=== PATIENT | female | born 1960 | race Caucasian/White ===

== ENCOUNTER 2022-09-13 15:34 | Day surgery (SDC) | payer OTHER ==
[2022-09-13] MEDS ORDERED: Depo-Medrol 40 MG/ML IM ONE (15:35)
[2022-09-13] MEDS ORDERED: LIDOCAINE HCL 1% 50 MG/5 ML VL PF IJ ONE (15:35)
[2022-09-13] MEDS ORDERED: BUPIVACAINE 0.5% VIAL IJ ONE (15:35)
--- NOTE | 2022-09-13 19:29 | XRAY ---
Indication: Right knee injection. Intraoperative fluoroscopy provided for 10 seconds. Single digital spot image submitted for interpretation demonstrates needle tip projecting over the right femur intercondylar notch. Small amount of contrast injected for needle tip placement. Correlate with intraoperative findings/report.
--- NOTE | 2022-09-13 19:30 | XRAY ---
Indication: Left knee injection. Intraoperative fluoroscopy provided for 4 seconds. Single digital spot image submitted for interpretation demonstrates needle tip projecting over the left femur intercondylar notch. Small amount of contrast injected for needle tip placement. Correlate with intraoperative findings/report.
--- NOTE | 2022-09-14 10:04 | XRAY ---
4 seconds of fluoroscopy was used in surgery for a left intra-articular knee injection.
--- NOTE | 2022-09-14 10:04 | XRAY ---
10 seconds of fluoroscopy was used in surgery for a right intra-articular knee injection.
== END 2022-09-13 17:15 | disposition home or self-care (01) ==
LOC: SDC-PAIN 15:34
PROVIDERS: ATTEND Psychiatry & Neurology Pain Medicine
DX: M17.0 Bilateral primary osteoarthritis of knee (principal); Z79.899 Other long term (current) drug therapy
CPT/HCPCS: 20610; 73560; 77002; J1030; J2001; Q9966

== ENCOUNTER 2022-11-16 18:40 | Emergency (ER) | payer OTHER ==
--- NOTE | 2022-11-16 18:41 | ERPHSYRPT ---
- History of Present Illness Time Seen by Provider: 11/16/22 18:41 Source: patient, family Exam Limitations: no limitations Physician History: This is a 62-year-old white female has a history of seasonal allergies and hyperlipidemia and fell down a couple of steps on her stairs this evening. She has pain in the lateral aspect of her right ankle. Because of the persistence and intensity of her pain, patient is here for evaluation including radiographic studies. Occurred: this evening Reason for Fall: slipped Injuries/Pain Location: lower extremity (Right foot and ankle) Loss of Consciousness: no loss of consciousness Quality: aching Severity of Pain-Max: moderate Severity of Pain-Current: moderate Modifying Factors: Improves With: movement Associated Symptoms (Fall): other (Hurts to bear weight but can do so) Allergies/Adverse Reactions: Penicillins Allergy (Verified 11/16/22 18:48) Home Medications: Atorvastatin Calcium 40 mg PO DAILY 11/16/22 [History] Cetirizine HCl [All Day Allergy] 10 mg PO DAILY 11/16/22 [History] Pregabalin 50 mg [Lyrica 50MG] 50 mg PO DAILY 11/16/22 [History] Travel Risk - International Travel Have you traveled outside of the country in past 3 weeks: No - Coronavirus Screening Are you exhibiting any of the following symptoms?: No Close contact with a COVID-19 positive Pt in past 14-21 Days: No - Review of Systems Constitutional: No Symptoms Eyes: No Symptoms Ears, Nose, & Throat: No Symptoms Respiratory: No Symptoms Cardiac: No Symptoms Abdominal/Gastrointestinal: No Symptoms Genitourinary Symptoms: No Symptoms Musculoskeletal: Injury (Right foot and ankle) Skin: No Symptoms Neurological: No Symptoms Psychological: No Symptoms Endocrine: No Symptoms Hematologic/Lymphatic: No Symptoms Immunological/Allergic: No Symptoms All Other Systems: Reviewed and Negative - Past Medical History Neurological History: Peripheral Neuropathy Cardiac History: High Cholesterol Respiratory History: Asthma Endocrine Medical History: No Pertinent History Musculoskeletal History: Fibromyalgia Other Medical History: Mitral valve prolapse - Nursing Vital Signs Nursing Vital Signs: Initial Vital Signs Temperature 97.2 F 11/16/22 18:56 Pulse Rate 84 11/16/22 18:56 Respiratory Rate 18 11/16/22 18:56 Blood Pressure 128/81 11/16/22 18:56 O2 Sat by Pulse Oximetry 97 11/16/22 18:56 Pain Scale Pain Intensity 5 - Duncan Coma Score Best Eye Response (Ramana): (4) open spontaneously Best Verbal Response (Duncan): (5) oriented Best Motor Response (Duncan): (6) obeys commands Ramana Total: 15 - Physical Exam General Appearance: no apparent distress, alert, anxiety Head Injury: no evidence of injury ENT Exam: airway nml, nml ext.inspection Neck Exam: supple, trachea midline, full range of motion, normal alignment Respiratory/Chest Exam: No chest tenderness, No respiratory distress Gastrointestinal Exam: No tenderness Rectal Exam: not done Back Exam: normal inspection, normal range of motion, vertebral tenderness, No CVA tenderness Extremity Exam: normal inspection, normal range of motion, pelvis stable, tenderness (Distal lateral ankle) Neurologic Exam: alert, oriented x 3, cooperative, messenger floorperson II-XII nml as tested, normal mood/affect, sensation nml Skin Exam: normal color, warm, dry SpO2 Interpretation: normal O2 Delivery: Room Air - Course Nursing assessment & vital signs reviewed: Yes Ordered Tests: Active Orders 24 hr Category Date Time Status Cold Application STAT Care 11/16/22 18:49 Active Crutches STAT Care 11/16/22 20:09 Active Splint STAT Care 11/16/22 20:08 Active ANKLE (3 VIEWS) Stat Exams 11/16/22 18:47 Taken FOOT (MINIMUM 3 VIEWS) Stat Exams 11/16/22 18:47 Taken Medication Summary Discontinued Medications Generic Name Dose Route Start Last Admin Trade Name Mike PRN Reason Stop Dose Admin Ibuprofen 600 mg 11/16/22 20:07 Ibuprofen 600 Mg Tablet PO 11/16/22 20:08 STAT ONE Naloxone HCl Confirm 11/16/22 19:00 Naloxone Hcl 0.4 Mg/Ml Ml Administered 11/16/22 19:01 Dose 0.4 mg .ROUTE .STK-MED ONE Oxycodone/Acetaminophen 1 tab 11/16/22 20:07 Oxycodone Hcl/Apap 5 Mg/325 Mg Tablet PO 11/16/22 20:08 STAT STA Oxycodone/Acetaminophen 2 tab 11/16/22 20:09 Oxycodone Hcl/Apap 5 Mg/325 Mg Tablet PO 11/16/22 20:10 SENT HOME W/ PATIENT STA - Progress Progress: improved, pain not gone completely, re-examined Progress Note: 11/16/22 20:17 This patient's medical issue is 1 of low complexity. Level complexity in the work-up performed is based on review of the past medical history, review of the patient's medication list, review of the patient's drug allergy list, history of present illness and physical findings on examination. Patient's work-up includes x-ray of right foot and right ankle. I reviewed and interpreted the x- ray of both the right foot and the right ankle. X-ray of the right foot does not show any acute fracture or dislocation of the bones of the foot. There appears to be a nondisplaced distal fibular fracture X-ray of the right ankle shows distal fibular fracture without displacement. Counseled pt/family regarding: diagnosis, need for follow-up, rad results Medical Desision Making - Independent Historian Additional History obtained from: Family - Diagnostic Testing Diagnostic test were ordered, analyzed, and reviewed by me: Yes Radiological Interpretation: Interpreted by me, Teleradiologist Report - Risk of complications Low Risk: Low risk of morbidity from additional dx testing or treatment - Departure Departure Disposition: Home Clinical Impression: Nondisplaced fracture of distal end of fibula Condition: Stable Critical Care Time: No Referrals: TOMASA PHILLIPS [Primary Care Provider] - Follow up/PCP as directed Additional Instructions: Nonweightbearing until after you are evaluated by either podiatry or orthopedic surgeon. You may seek further evaluation management by Dr. Beck, our data assistant at [facility]. You also have the option of [facility] orthopedic clinic. It is a Sunday through Sunday 8 AM to 10 AM clinic. You do not need to have an appointment. Ice pack to the right ankle 3 times a day. Add ibuprofen 600 mg orally with food 3 times a day for 5 days.
[2022-11-16 18:57] VITALS: RESP 18; TEMP 97.2
[2022-11-16] MEDS ORDERED: Narcan 0.4 MG/ML ONE (19:00)
[2022-11-16 20:06] VITALS: BP 137/92; PULSE 83; O2SAT 98
[2022-11-16] MEDS ORDERED: PERCOCET TABLET 5/325MG PO STA ×2 (20:07→20:09)
[2022-11-16] MEDS ORDERED: MOTRIN 600 MG PO ONE (20:07)
[2022-11-16] MEDS ORDERED: PERCOCET TABLET 5/325MG ONE ×2 (20:11→20:15)
[2022-11-16] MEDS ORDERED: MOTRIN 600 MG ONE (20:11)
--- NOTE | 2022-11-17 08:52 | XRAY ---
Indication: Pain following fall. Comparison: October 31, 2021 3 nonweightbearing views right foot demonstrates distal fibula shaft fracture reported separately. Stable tiny plantar heel spur. No other bony, articular, or soft tissue abnormalities.
--- NOTE | 2022-11-17 08:52 | XRAY ---
Indication: Pain following fall. Comparison: October 31, 2021 3 view right ankle demonstrates new incomplete oblique hairline fracture distal shaft fibula with adjacent soft tissue swelling. Stable tiny plantar heel spur. No other bony, articular, or soft tissue abnormalities.
== END 2022-11-16 20:40 | disposition home or self-care (01) ==
LOC: ED 18:40
DX: S82.831A Other fracture of upper and lower end of right fibula, initial encounter for closed fracture (principal); W10.9XXA Fall (on) (from) unspecified stairs and steps, initial encounter; E78.5 Hyperlipidemia, unspecified; Z79.899 Other long term (current) drug therapy
CPT/HCPCS: 29515; 73610; 73630; 99283; J2310; A9270-GY

== ENCOUNTER 2022-12-13 15:22 | Day surgery (SDC) | payer OTHER ==
[2022-12-13] MEDS ORDERED: Depo-Medrol 40 MG/ML IM ONE (15:23)
[2022-12-13] MEDS ORDERED: BUPIVACAINE 0.5% VIAL IJ ONE (15:23)
[2022-12-13] MEDS ORDERED: LIDOCAINE HCL 1% 50 MG/5 ML VL PF IJ ONE (15:23)
--- NOTE | 2022-12-13 21:12 | XRAY ---
Indication: Bilateral SI joint injection. Intraoperative fluoroscopy provided for 15 seconds. 4 digital spot image submitted for interpretation demonstrates posterior needle tip projecting over the left and right SI joint. Correlate with intraoperative findings/report.
--- NOTE | 2022-12-14 08:44 | XRAY ---
15 seconds of fluoroscopy was used in surgery for a bilateral sacroiliac joint injection.
== END 2022-12-13 18:20 | disposition home or self-care (01) ==
LOC: SDC-PAIN 15:22
PROVIDERS: ATTEND Psychiatry & Neurology Pain Medicine
DX: M46.1 Sacroiliitis, not elsewhere classified (principal)
CPT/HCPCS: 27096; 72202; 77002; G0260; J1030; J2001